=== PATIENT | male | born 1950 | race Caucasian/White ===

== ENCOUNTER 2017-10-02 19:30 | Emergency (ER) | payer OTHER, MEDICAID ==
[~2017-10-02] VITALS: Ht 165.1 cm; Wt 80.0 kg
[2017-10-02 19:30] VITALS: BP 157/95
== END 2017-10-02 21:40 | disposition left against medical advice (07) ==
LOC: ER 20:25
DX: Z53.21 Procedure and treatment not carried out due to patient leaving prior to being seen by health care provider (principal)
CPT/HCPCS: 93005

== ENCOUNTER 2018-06-25 11:31 | Emergency (ER) | payer OTHER, MEDICAID ==
[~2018-06-25] VITALS: Ht 167.6 cm; Wt 80.0 kg
[2018-06-25 11:41] VITALS: BP 134/90
[2018-06-25] MEDS ORDERED: IBUPROFEN 800MG TABLET PO ONE (12:15)
== END 2018-06-25 13:25 | disposition left against medical advice (07) ==
LOC: ER 11:31
DX: R07.81 Pleurodynia (principal); I10 Essential (primary) hypertension; E11.9 Type 2 diabetes mellitus without complications; J45.909 Unspecified asthma, uncomplicated; W01.0XXA Fall on same level from slipping, tripping and stumbling without subsequent striking against object, initial encounter; Y93.89 Activity, other specified; Y92.488 Other paved roadways as the place of occurrence of the external cause
CPT/HCPCS: 71101; 99284

== ENCOUNTER 2018-06-29 12:12 | Emergency (ER) | payer OTHER, MEDICAID ==
[~2018-06-29] VITALS: Ht 162.6 cm; Wt 78.0 kg
[2018-06-29 13:22] VITALS: BP 149/88
== END 2018-06-29 15:05 | disposition left against medical advice (07) ==
LOC: ER 12:12
DX: R10.9 Unspecified abdominal pain (principal); R19.7 Diarrhea, unspecified
CPT/HCPCS: 99281

== ENCOUNTER 2019-06-10 17:03 | Emergency (ER) | payer OTHER, MEDICAID | END 2019-06-10 21:20 | disposition left against medical advice (07) | LOC: ER 17:03 | DX: Z53.21 Procedure and treatment not carried out due to patient leaving prior to being seen by health care provider (principal) ==